=== PATIENT | female | born 1945 | race Caucasian/White ===

== ENCOUNTER 2017-07-23 22:21 | Emergency (ER) | payer MEDICARE, BC ==
[2017-07-23] MEDS ORDERED: Methocarbamol 500 MG Tab ONE (22:35)
[2017-07-23] MEDS ORDERED: traMADol 50 MG Tab ONE (22:35)
--- NOTE | 2017-07-24 00:24 | EDM.PDOC ---
ED HPI GENERAL MEDICAL PROBLEM - General Stated Complaint: stomache cramps/side pain Time Seen by Provider: 07/23/17 23:30 Source of Information: Reports: Patient History Limitations: Reports: No Limitations - History of Present Illness INITIAL COMMENTS - FREE TEXT/NARRATIVE: This is a 71yo F here for severe pain of the left side near the ribs. Patient states she has had this pain in the past when she strained a muscle. Patient states she was lifting heavy items the past few days and that could have started her symptoms. Patient denies any chest pain and no shortness of breath. Onset: Sudden Duration: Hour(s): Location: Reports: Other (left lower ribs) Quality: Reports: Sharp, Stabbing Severity: Moderate Improves with: Reports: None Worsens with: Reports: Movement Context: Reports: Activity Associated Symptoms: Reports: No Other Symptoms - Related Data Allergies Allergy/AdvReac Type Severity Reaction Status Date / Time No Known Allergies Allergy Verified 05/16/14 11:22 Home Meds: Home Meds ALPRAZolam [Alprazolam] 0.25 mg PO DAILY PRN 05/16/14 [History] B12/Levomefolate Calcium/B-6 [Cbvdqnskfw-Svxjvga-Rypqfrcf Tb] 1 tab PO DAILY [History] Calcium Citrate/Vitamin D3 [Calcium Citrate + D] 1 tab PO DAILY 05/16/14 [ History] Magnesium Oxide 250 mg PO DAILY 05/16/14 [History] Metoprolol Tartrate [Lopressor] 25 mg PO BID 05/16/14 [History] Simvastatin [Simvastatin] 20 mg PO DAILY 05/16/14 [History] Venlafaxine HCl [Venlafaxine ER] 37.5 mg PO DAILY 05/16/14 [History] Vitamin B Complex 100 NO.2 [B100 Balanced] 100 mg PO DAILY 05/16/14 [History] Meclizine [Antivert] 25 mg PO DAILY 07/23/17 [History] Social & Family History - Tobacco Use Smoking Status *Q: Never Smoker - Alcohol Use Days Per Week of Alcohol Use: 0 - Recreational Drug Use Recreational Drug Use: No - Living Situation & Occupation Living situation: Reports: Occupation: Retired ED ROS GENERAL - Review of Systems Review Of Systems: ROS reveals no pertinent complaints other than HPI. ED EXAM, GENERAL - Physical Exam Exam: See Below Exam Limited By: No Limitations General Appearance: Alert, WD/WN, No Apparent Distress Nose: Normal Inspection Throat/Mouth: Normal Inspection Head: Atraumatic, Normocephalic Neck: Normal Inspection, Supple Respiratory/Chest: No Respiratory Distress, Lungs Clear, Other (left lower rib pain on palpation and intercostal muscle pain on touch - reproducible and point tenderness) Cardiovascular: Normal Peripheral Pulses, Regular Rate, Rhythm GI/Abdominal: Normal Bowel Sounds Back Exam: Normal Inspection Extremities: Normal Inspection Course - Orders/Labs/Meds Meds: Medications Discontinued Medications Generic Name Dose Route Start Last Admin Trade Name Freq PRN Reason Stop Dose Admin Methocarbamol 7,500 mg 07/23/17 22:35 Robaxin .ROUTE 07/23/17 22:36 .STK-MED ONE Tramadol HCl 500 mg 07/23/17 22:35 Ultram .ROUTE 07/23/17 22:36 .STK-MED ONE Departure - Departure Time of Disposition: 23:50 Disposition: Home, Self-Care 01 Condition: Good Clinical Impression: Intercostal muscle strain Qualifiers: Encounter type: initial encounter Qualified Code(s): S29.011A - Strain of muscle and tendon of front wall of thorax, initial encounter - Discharge Information Referrals: PCP,None [Primary Care Provider] - Forms: ED Department Discharge Additional Instructions: Methocarbomol 500mg take 0.5 to one tab every 6 hours PRN. Take tramadol 50mg 1/ 2 tab to one tab every 6 hr for pain. - Problem List Review Problem List Initiated/Reviewed/Updated: Yes - Assessment/Plan Plan: Patient counseled on supportive care and meds sent home for pain management. Discussed f/u in clinic or ER if symptoms persist or worsen.
== END 2017-07-23 23:36 | disposition home or self-care (01) ==
LOC: LB.ED 22:21
DX: S29.011A Strain of muscle and tendon of front wall of thorax, initial encounter (principal); Z79.899 Other long term (current) drug therapy; X50.0XXA Overexertion from strenuous movement or load, initial encounter
CPT/HCPCS: 99283; A9270-GY

== ENCOUNTER 2022-12-22 03:56 | Emergency (ER) | payer MEDICARE, BC ==
[2022-12-22] MEDS: Diazepam 5 MG Tab PO ONE (04:48)
[2022-12-22] MEDS: Diazepam 5 MG Tab ONE (05:00)
[2022-12-22 05:01] LABS: HEMATOCRIT 35.3 % (37.0-47.0); HEMOGLOBIN 11.6 g/dL (11.5-16.5); MEAN CORPUSCULAR HEMOGLOBIN 30.7 pg (27.0-32.0); MEAN CORPUSCULAR HGB CONC 32.9 g/dL (31.0-35.0); MEAN PLATELET VOLUME 9.7 fL (6.0-10.0); RED BLOOD CELL COUNT 3.78 M/uL (3.80-5.80); RED CELL DISTRIBUTION WIDTH 13.4 % (11.0-16.0); WHITE BLOOD CELL COUNT,WBC 6.7 K/uL (4.0-11.0)
[2022-12-22 05:21] LABS: ANION GAP 10.9 mmol/L (5.0-15.0); BUN/CREATININE RATIO 25.3 (6-25); CALCIUM 9.2 mg/dL (8.5-10.1); CREATININE 0.75 mg/dL (0.55-1.02); EST CRCL DRUG DOSING (CG) 48.1 mL/min; MAGNESIUM 2.1 mg/dL (1.8-2.4); PHOSPHORUS 3.9 mg/dL (2.5-4.9); POTASSIUM,K 3.9 mmol/L (3.5-5.1); TROPONIN I HIGH SENSITIVITY 16.2 pg/ml (<=60.4)
[2022-12-22] MEDS: Aspirin 81 MG Tab.Chew PO ONE (05:27)
[2022-12-22] MEDS: Metoprolol Tartrate 25 MG Tab PO ONE (08:29)
[2022-12-22] MEDS: Lactated Ringers 1,000 ML IV SCH (08:38)
[2022-12-22] MEDS: Metoprolol Tartrate 25 MG Tab ONE (08:40)
== END 2022-12-22 09:59 | disposition home or self-care (01) ==
LOC: SUPCPDRO 03:56 → LB.ED 03:56
DX: F41.9 Anxiety disorder, unspecified (principal); I10 Essential (primary) hypertension; Z79.899 Other long term (current) drug therapy
CPT/HCPCS: 36415; 80048; 83735; 84100; 84443; 84484; 85027; 85379; 93005; 93010; 96360; 99283; A9270; J7120